=== PATIENT | female | born 1975 | race Two or more races ===

== ENCOUNTER 2019-12-06 16:52 | Emergency (ER) | payer MEDICAID ==
[~2019-12-06] VITALS: Ht 154.9 cm; Wt 75.0 kg
[2019-12-06] MEDS ORDERED: IBUPROFEN 400MG TABLET PO ONE (17:45)
[2019-12-06 17:53] LABS: EOSINOPHILS % 0.5 % (0.0-5.0); HEMATOCRIT. 40.5 % (36.0-48.0); HEMOGLOBIN. 13.6 g/dL (12.0-16.0); LYMPHOCYTES % 27.1 % (20.0-50.0); MEAN CORPUSCULAR HEMOGLOBIN 26.2 pg (28.0-32.0); MEAN CORPUSCULAR VOLUME 77.7 fL (81.0-99.0); MEAN PLATELET VOLUME 9.3 fl (7.4-10.4); NEUTROPHILS % 64.4 % (40.0-76.0); PLATELET 236 x1000/uL (130-400); RED BLOOD CELL COUNT 5.21 mill/uL (4.2-5.4); RED CELL DISTRIBUTION WIDTH 13.7 % (11.6-14.6)
[2019-12-06 18:00] LABS: CHLORIDE 107 mEq/L (98-107)
[2019-12-06 18:02] LABS: HCG SCREEN NEGATIVE
[2019-12-06 18:04] LABS: PARTIAL THROMBOPLASTIN TIME 27.9 sec (23.4-31.0); PROTHROMBIN TIME 10.3 sec (9.6-11.0)
[2019-12-06 20:34] VITALS: BP 128/86
== END 2019-12-06 20:32 | disposition home or self-care (01) ==
LOC: ER 17:16
DX: K62.89 Other specified diseases of anus and rectum (principal); K64.9 Unspecified hemorrhoids; E78.00 Pure hypercholesterolemia, unspecified
CPT/HCPCS: 36415; 80053; 82270; 84703; 85025; 93005; 99284